=== PATIENT | female | born 1980 | race Two or more races ===

== ENCOUNTER 2022-12-15 09:28 | Outpatient (CLI) | payer OTHER | END 2022-12-15 09:36 | disposition home or self-care (01) | LOC: MAMO-SONO 09:28 | PROVIDERS: ATTEND Obstetrics & Gynecology | DX: N63.10 Unspecified lump in the right breast, unspecified quadrant (principal); N63.20 Unspecified lump in the left breast, unspecified quadrant; Z12.31 Encounter for screening mammogram for malignant neoplasm of breast ==

== ENCOUNTER 2023-01-04 09:59 | Outpatient (CLI) | payer OTHER | END 2023-01-04 10:06 | disposition home or self-care (01) | LOC: SONOGRAMA 09:59 | DX: N83.299 Other ovarian cyst, unspecified side (principal) ==